=== PATIENT | male | born 1975 | race Hispanic/Latino ===

== ENCOUNTER → 2023-02-08 | Day surgery (SDC) | payer OTHER ==
[~2023-02-08] MED LIST: IRON PO; LIDOCAINE HCL 2% LOCAL INJ 5 ML SDV VIAL INJ ONE; MIDAZOLAM HCL 2 MG/2 ML VIAL ONE; VITAMIN D PO
[2023-02-08 17:10] VITALS: BP 109/70
== END | disposition home or self-care (01) ==
LOC: OR 13:14
PROVIDERS: ATTEND Internal Medicine Gastroenterology
DX: D64.89 Other specified anemias (principal); K62.1 Rectal polyp; K29.70 Gastritis, unspecified, without bleeding; B96.81 Helicobacter pylori [H. pylori] as the cause of diseases classified elsewhere; K62.5 Hemorrhage of anus and rectum; K20.90 Esophagitis, unspecified without bleeding; K64.8 Other hemorrhoids; Z71.3 Dietary counseling and surveillance; Z01.810 Encounter for preprocedural cardiovascular examination; Z68.30 Body mass index [BMI] 30.0-30.9, adult
CPT/HCPCS: 43239; 45380; 93005; J2001; J2250